=== PATIENT | female | born 1965 | race Caucasian/White ===

== ENCOUNTER 2022-05-16 14:32 | Emergency (ER) | payer BC ==
[~2022-05-16] VITALS: Ht 172.7 cm; Wt 83.9 kg
[2022-05-16] MEDS ORDERED: IV NS 0.9% 500 ML BAG IV ONE (16:00)
[2022-05-16] MEDS ORDERED: IPRATROPIUM NEB FS 0.5 MG/2.5 ML AMPUL.NEB NEB ONE (16:30)
[2022-05-16] MEDS ORDERED: predniSONE 20 MG TABLET PO ONE (16:30)
[2022-05-16] MEDS ORDERED: ALBUTEROL FS 2.5 MG/3 ML VIAL.NEB NEB ONE (16:30)
[2022-05-16] MEDS ORDERED: predniSONE 20 MG TABLET ONE (16:30)
[2022-05-16 16:33] LABS: BASOPHILS # (AUTO) 0.1 K/uL (0.0-0.2); BASOPHILS % (AUTO) 1.2 % (0.0-2.0); EOSINOPHILS % (AUTO) 3.5 % (0.0-6.0); HEMATOCRIT 39 % (33-45); HEMOGLOBIN 12.7 g/dL (11.5-14.8); LYMPHOCYTES # (AUTO) 1.4 K/uL (0.8-4.8); MEAN CORPUSCULAR HGB CONC 33 g/dl (31.0-36.0); MEAN CORPUSCULAR VOLUME 85 fL (82-100); MONOCYTES # (AUTO) 0.5 K/uL (0.1-1.30); MONOCYTES % (AUTO) 8.2 % (2.0-12.0); NEUTROPHILS # (AUTO) 3.8 K/uL (1.8-8.9); NEUTROPHILS % (AUTO) 63.1 % (43.0-81.0); PLATELET COUNT (AUTO) 326 K/uL (150-450); RED BLOOD CELL COUNT(AUTO) 4.59 MIL/uL (4.0-5.2)
--- NOTE | 2022-05-16 17:00 | NUR ---
RTx rendered by RT as ordered by pt in NO obvious distress- NO acute changes from initial presentation. Aware and updated with plan of care
[2022-05-16 17:04] LABS: ALBUMIN 3.6 g/dL (3.4-5.0); BILIRUBIN,DIRECT 0.1 mg/dL (0.0-0.2); BILIRUBIN,TOTAL 0.2 mg/dL (0.2-1.0); CALCIUM, SERUM 8.7 mg/dL (8.5-10.1); CREATININE 0.9 mg/dL (0.6-1.3); POTASSIUM 4.3 mmol/L (3.5-5.1); TOTAL PROTEIN, SERUM 7.4 g/dL (6.4-8.2)
[2022-05-16] MEDS ORDERED: IPRATROPIUM NEB FS 0.5 MG/2.5 ML AMPUL.NEB ONE (17:06)
[2022-05-16] MEDS ORDERED: ALBUTEROL FS 2.5 MG/3 ML VIAL.NEB ONE (17:06)
[2022-05-16] MEDS ORDERED: PRED20TA PO (19:14)
--- NOTE | 2022-05-16 19:42 | NUR ---
Patient discharged to home in stable condition by dayshift RN. Written and verbal after care instructions given. Patient verbalizes understanding of instruction.
[2022-05-17 05:03] VITALS: BP 159/93
== END 2022-05-16 19:42 | disposition home or self-care (01) ==
LOC: ER 14:35
DX: J20.9 Acute bronchitis, unspecified (principal); Z20.822 Contact with and (suspected) exposure to COVID-19
CPT/HCPCS: 99285; 71045; 87426; 93005; 85025; 80048; 80076; 36415; 94799; 94640; J7512; J7040; C9803